=== PATIENT | female | born 1965 | race Caucasian/White ===

== ENCOUNTER → 2023-10-28 16:35 | Outpatient (REF) | payer OTHER, SELFPAY | LOC: RAD 16:35 | PROVIDERS: ATTENDING PHYSICIAN Specialist; FAMILY PHYSICIAN Family Medicine | DX: M17.0 Bilateral primary osteoarthritis of knee (principal) | CPT/HCPCS: 73560; 73565 ==

== ENCOUNTER → 2023-11-27 17:25 | Outpatient (REF) | payer OTHER, SELFPAY | LOC: RCS 17:25 | PROVIDERS: ATTENDING PHYSICIAN Internal Medicine Interventional Cardiology; FAMILY PHYSICIAN Family Medicine | DX: R06.09 Other forms of dyspnea (principal) | CPT/HCPCS: 93306 ==

== ENCOUNTER → 2023-11-28 07:05 | Outpatient (REF) | payer OTHER, SELFPAY | LOC: DHCBC/DCA 07:05 | PROVIDERS: ATTENDING PHYSICIAN Internal Medicine Interventional Cardiology; FAMILY PHYSICIAN Family Medicine | DX: R06.09 Other forms of dyspnea (principal) | CPT/HCPCS: 78452; 93017; A9500 ==

== ENCOUNTER → 2024-04-15 09:59 | Outpatient (REF) | payer OTHER, SELFPAY | LOC: WDC 09:59 | PROVIDERS: ATTENDING PHYSICIAN Advanced Practice Midwife; FAMILY PHYSICIAN Family Medicine | DX: N63.20 Unspecified lump in the left breast, unspecified quadrant (principal); N63.21 Unspecified lump in the left breast, upper outer quadrant | CPT/HCPCS: 76642; 77062; 77066 ==

== ENCOUNTER → 2024-06-09 16:41 | Outpatient (REF) | payer OTHER, SELFPAY | LOC: RAD 16:41 | PROVIDERS: ATTENDING PHYSICIAN Family Medicine | DX: M54.50 Low back pain, unspecified (principal); M51.360 Other intervertebral disc degeneration, lumbar region with discogenic back pain only | CPT/HCPCS: 72110 ==

== ENCOUNTER 2024-08-12 18:55 | Outpatient (RCR) | payer OTHER, SELFPAY | END 2024-08-12 23:59 | disposition home or self-care (01) | LOC: RPT 18:55 | PROVIDERS: ATTENDING PHYSICIAN Physical Medicine & Rehabilitation; FAMILY PHYSICIAN Family Medicine | DX: M47.816 Spondylosis without myelopathy or radiculopathy, lumbar region (principal); M43.16 Spondylolisthesis, lumbar region; Z73.6 Limitation of activities due to disability | CPT/HCPCS: 97110; 97140; 97161 ==

== ENCOUNTER 2024-09-02 17:00 | Outpatient (RCR) | payer OTHER, SELFPAY | END 2024-09-02 23:59 | disposition home or self-care (01) | LOC: RPT 17:00 | PROVIDERS: ATTENDING PHYSICIAN Physical Medicine & Rehabilitation; FAMILY PHYSICIAN Family Medicine | DX: M47.816 Spondylosis without myelopathy or radiculopathy, lumbar region (principal); M43.16 Spondylolisthesis, lumbar region; Z73.6 Limitation of activities due to disability | CPT/HCPCS: 97110; 97140 ==

== ENCOUNTER 2024-09-16 08:26 | Emergency (ER) | payer OTHER, SELFPAY ==
[2024-09-16 08:40] VITALS: BP 114/67
--- NOTE | 2024-09-16 09:39 | ED.GENMED ---
History of Present Illness
General
Chief Complaint: Fall
Source: patient
Time Seen by Provider: 09/16/24 09:30
History of Present Illness
History of Present Illness:
58-year-old female with no reported past medical history presenting to the emergency department for evaluation after sustaining an accidental fall at the [facility] this morning around 7:30 AM injuring her left ankle and striking her
head on the ground/wall. Patient states no loss of consciousness following the fall but does states she felt dazed afterwards and still has a left-sided headache. No reported vomiting, visual changes, focal weakness or numbness or any other
injuries sustained. Patient states the pain on her left ankle is mainly lateral and is worse when inverting or everting her ankle.
Past History
Past History
ED Past Medical History: None
ED Past Surgical History: Cholecystectomy and Other
Social History
Tobacco: Non-smoker
Alcohol: None
Drug: None
Personal:
Living: with family
Employment: Employed
Review of Systems
Review of Systems
All Other Systems: ROS reviewed and negative except as documented in HPI and ROS
Phy Exam
Physical Exam
Physical Exam:
GENERAL: Alert , in no apparent distress
EYE: conjunctiva clear, pupils 4 mm, EOMI
Head: Normocephalic atraumatic, no hematoma, no contusion
NECK: Supple, no midline tenderness
ENT: mmm.
LUNGS: no acute respiratory distress
NEUROLOGICAL: Alert and oriented
SKIN: Warm and dry, skin intact.
MUSCULOSKELETAL: Left lower extremity: Tenderness over the left lateral malleolus. No other deformities/tenderness neurovascularly intact.
PSYCH: Normal and appropriate interaction.
Scores
Heart Failure Risk
Heart Failure Risk Score: Not Applicable
Heart Score for Chest Pain Patients
STEMI patient?: Not applicable
Withdrawal Assessment of Alcohol
Withdrawal Assessment Completed?: Not applicable
Course
Orders/Labs/Results
Orders:
Orders
09/16/24 08:45
Ankle, left 3 view CR [CR Ankle - Left Min 3 Views ] Urgent
Comment:
Reason For Exam: pain, fall
09/16/24 09:39
Ortho Boot Left- Treatment ONCE
Short or tall?: Short
Vital Signs
Initial and Last Documented VS:
Initial Vital Signs
Temp Pulse Resp BP Pulse Ox
97.9 F 78 18 114/67 98
09/16/24 08:40 09/16/24 08:40 09/16/24 08:40 09/16/24 08:40 09/16/24 08:40
Last Documented Vital Signs
Temp Pulse Resp BP Pulse Ox
97.9 F 78 18 114/67 98
09/16/24 08:40 09/16/24 08:40 09/16/24 08:40 09/16/24 08:40 09/16/24 08:40
MDM/Problems Addressed
Differential Diagnosis Includes:
Sprain, contusion, fracture, concussion, I do not have concern for intracranial bleeding or calvarial fracture
MDM/Problems Addressed:
58-year-old female presenting to the ER for evaluation after sustaining an accidental fall injuring her left ankle and left side of her head. I do not have concern for intracranial bleeding given the mechanism, no loss consciousness, no vomiting,
no anticoagulants. Discussed possibilities of concussion. X-ray of the left ankle performed on arrival which does show a nondisplaced lateral malleolus fracture. Patient preferred orthopedic boot over splint which I do think is reasonable given
it is a nonweightbearing bone. Patient does have crutches and I did advise her to use this for increased ability. Patient has orthopedic group to follow-up with. RAQUEL recommendations discussed. Stable for discharge home otherwise
*Radiology
Radiology exam reviewed: preliminary read by ED provider (Nondisplaced lateral malleolus fracture)
*Pulse Oximetry
Patient hypoxic: no
*Critical Care Note
Total Time (30-74mins, 75-104mins- exclusive of procedures): Not Applicable
Data Reviewed
Further Testing Considered But Not Given:
Discussed CT imaging however patient agrees, no indication for this at this time.
ED Attending Note
-
Portions of this chart may have been created with voice recognition software.� Occasional wrong word or��sound alike� substitutions may have occurred due to the inherent limitations of voice recognition software.
Discharge Plan
Departure
Patient Disposition: Home (Routine Discharge)
Date of Disposition: 09/16/24
Time of Disposition: 09:39
Patient with high blood pressure during this ER visit?: No
Discharge Problem:
Accidental fall, Closed fracture of left lateral malleolus
Instructions: Ankle Fracture (DC)
Prescriptions:
No Action
chlorpheniramine maleate 4 MG tablet
4 mg PO DAILY
L norgest/e.estradiol-e.estrad [Seasonique] 1 EACH tablets,dose pack,3 month
1 ea PO DAILY
Fish Oil
Ipratropium [place]
1 spray intranasal DAILY
Iron
Multivitamin
VITAMIN C
VITAMIN D
Vitamin B-100 Balanced
amoxicillin-pot clavulanate 875 MG/125 MG tablet
1 tab PO BID Qty: 20 0RF
methocarbamol [Robaxin] 500 MG tablet
1.5 g PO TID Qty: 27 0RF
Stand Alone Forms: Return to Work
Interventions
Interventions:
*Risk Screen - Suicide Last Done: 09/16/24 08:40
*General Assessment Last Done: 09/16/24 08:40
*Neglect/Abuse Screening Last Done: 09/16/24 08:40
*Nursing Disposition Last Done: 09/16/24 10:11
ED- Neurological Assessment Last Done: 09/16/24 10:10
Discharge Date and Time
Discharge Date/Time: 09/16/24 10:12
Print Language: NEPALI
== END 2024-09-16 10:12 | disposition home or self-care (01) ==
LOC: EMR 08:26
PROVIDERS: EMERGENCY PHYSICIAN Emergency Medicine; FAMILY PHYSICIAN Family Medicine
DX: S82.62XA Displaced fracture of lateral malleolus of left fibula, initial encounter for closed fracture (principal); W19.XXXA Unspecified fall, initial encounter; Z90.49 Acquired absence of other specified parts of digestive tract
CPT/HCPCS: 99283; 73610

== ENCOUNTER → 2024-10-21 07:47 | Outpatient (REF) | payer OTHER, SELFPAY | LOC: RAD 07:47 | PROVIDERS: ATTENDING PHYSICIAN Internal Medicine Endocrinology, Diabetes & Metabolism; FAMILY PHYSICIAN Family Medicine | DX: Z78.0 Asymptomatic menopausal state (principal) | CPT/HCPCS: 77080 ==

== ENCOUNTER 2024-12-16 17:52 | Outpatient (RCR) | payer OTHER, SELFPAY | END 2024-12-16 23:59 | disposition home or self-care (01) | LOC: RPT 17:52 | PROVIDERS: ATTENDING PHYSICIAN Specialist; FAMILY PHYSICIAN Family Medicine | DX: S82.65XD Nondisplaced fracture of lateral malleolus of left fibula, subsequent encounter for closed fracture with routine healing (principal); Z73.6 Limitation of activities due to disability; X58.XXXD Exposure to other specified factors, subsequent encounter | CPT/HCPCS: 97010; 97110; 97140; 97162 ==

== ENCOUNTER 2024-12-28 16:53 | Outpatient (RCR) | payer OTHER, SELFPAY | END 2024-12-28 23:59 | disposition home or self-care (01) | LOC: RPT 16:53 | PROVIDERS: ATTENDING PHYSICIAN Specialist; FAMILY PHYSICIAN Family Medicine | DX: S82.65XD Nondisplaced fracture of lateral malleolus of left fibula, subsequent encounter for closed fracture with routine healing (principal); Z73.6 Limitation of activities due to disability; X58.XXXD Exposure to other specified factors, subsequent encounter | CPT/HCPCS: 97110; 97140 ==

== ENCOUNTER 2025-02-03 18:24 | Emergency (ER) | payer OTHER, SELFPAY ==
[2025-02-03 18:28] VITALS: BP 138/82
[2025-02-03 18:48] LABS: Hematocrit 40.9 % (37.0-47.0); Hemoglobin 13.9 g/dL (12.0-16.0); Mean Corp Hgb Conc. 34.0 g/dL (33.0-37.0); Mean Corpuscular Volume 90.5 fL (81.0-99.0); Nucleated Red Blood Cells % 0 %; Platelet Count 221 10^3/uL (130-400); Red Cell Dist. Width 13.1 % (11.5-14.5)
[2025-02-03 18:59] LABS: ALT (SGPT) 18 U/L (0-35); AST (SGOT) 24 U/L (14-36); Albumin 4.9 g/dl (3.5-5.0); Alkaline Phosphatase 64 U/L (38-126); Blood Urea Nitrogen 17 mg/dl (7-17); Calcium 9.5 mg/dl (8.4-10.2); Carbon Dioxide 24 mmol/L (22-30); Chloride 110 mmol/L (98-107); Glucose 103 mg/dl (70-99); Potassium 4.6 mmol/L (3.5-5.1); Sodium 141 mmol/L (135-145); Total Protein 7.5 g/dl (6.3-8.2); eGFR > 60.00
[2025-02-03 19:00] LABS: Lipase 116 U/L (23-300)
[2025-02-03 21:42] VITALS: BMI 26.0
[2025-02-03 21:52] VITALS: BP 125/76
[2025-02-03 22:00] VITALS: BP 125/77
[2025-02-03 23:03] VITALS: BP 128/73
[2025-02-03] MEDS: ZOFRAN 4 MG IV (23:17)
[2025-02-03] MEDS: TORADOL 30 MG IV (23:17)
[2025-02-03] MEDS: NSS 1000 IV (23:18)
--- NOTE | 2025-02-04 00:15 | ED.GENMED ---
History of Present Illness
General
Chief Complaint: Abdominal Pain
Source: patient
Exam Limitations: none
Time Seen by Provider: 02/03/25 22:43
Nursing documentation reviewed up to this point in time: agreed with
History of Present Illness
History of Present Illness:
Patient to ED with complaint of right sided abd. pain radiating around to flank. Symptoms started 3 days ago but worsened today. Denies fever/chills. +nausea, no vomiting. No prior history of same.
Past History
Past History
ED Past Medical History: None
ED Past Surgical History: Cholecystectomy and Other
Social History
Tobacco: Non-smoker
Alcohol: None
Drug: None
Personal:
Living: with family
Employment: Employed
Review of Systems
Review of Systems
Allergies reviewed?: Yes
All Other Systems: ROS reviewed and negative except as documented in HPI and ROS
Constitutional: Reports no symptoms
EENT: Reports no symptoms
Respiratory: Reports no symptoms
Cardiac: Reports no symptoms
ABD/GI: Reports abdominal pain (right abd pain)
: Reports flank pain
Musculoskeletal: Reports no symptoms
Skin: Reports no symptoms
Neurological: Reports no symptoms
Psychiatric: Reports no symptoms
Phy Exam
General Physical Exam
General Presentation: moderate distress
General age: appears stated age
General Skin: warm and dry
General Habitus: normal
General Mental: alert
Cardiovascular Exam
Cardiovascular Exam: regular rate/rhythm and no edema
Gastrointestinal Exam
Gastrointestinal Exam: normal bowel sounds, soft, no organomegaly, no pulsatile mass and non distended
Palpation: left upper quadrant: No tenderness, left lower quadrant: No tenderness, right upper quadrant: Moderate tenderness and right lower quadrant: Mild tenderness
Musculoskeletal Exam
Musculoskeletal Exam: full ROM and neuro vasc intact
Skin Exam
Skin Exam: normal color, warm/dry and no rash
Psychiatric Exam
Psychiatric Exam: normal mood/affect
Course
Orders/Labs/Results
Orders:
Orders
02/03/25 18:35
Complete Blood Count/With Diff Urgent
Comprehensive Metabolic Panel Urgent
Lipase Urgent
02/03/25 22:52
Ketorolac [Toradol] 30 mg IV NOW STA
Ondansetron Injectable [Zofran] 4 mg IV NOW STA
02/03/25 22:53
CT Abd/pelvis W Iv Cont Urgent
Comment:
Reason For Exam: right sided abd. pain
0.9% Sodium Chloride 1000 ml [Nss] 1,000 ml IV BOLUS
02/04/25 00:27
Hydrocodone 5/APAP 325 [[place] 5/325] 1 tablet PO NOW STA
02/04/25 00:31
Hydrocodone 5/APAP 325 [[place] 5/325] 1 tablet PO NOW STA
Abnormal Lab Results
02/03/25
18:35
Absolute Monos (auto) 0.7 H 10^3/uL
(0.1-0.6)
Neutrophils % 39.9 L %
(42.2-75.2)
Monocytes % 11.6 H %
(1.7-9.3)
Chloride 110 H mmol/L
(98-107)
Glucose 103 H mg/dl
(70-99)
02/03/25 18:35
02/03/25 18:35
Vital Signs
Initial and Last Documented VS:
Initial Vital Signs
Temp Pulse Resp BP Pulse Ox
98.5 F 71 18 138/82 98
02/03/25 18:28 02/03/25 18:28 02/03/25 18:28 02/03/25 18:28 02/03/25 18:28
Last Documented Vital Signs
Temp Pulse Resp BP Pulse Ox
97.8 F 59 19 128/73 96
02/03/25 21:54 02/03/25 23:15 02/03/25 23:15 02/03/25 23:03 02/04/25 00:18
*Radiology
Radiology exam reviewed: radiology read reviewed
*Pulse Oximetry
SaO2: 96
Oxygen Mode of Delivery: Room air
Patient hypoxic: no
*Critical Care Note
Total Time (30-74mins, 75-104mins- exclusive of procedures): Not Applicable
Update Note
Update Note:
Patient to ED with complaint of right sided abd pain radiating to right flank x 3 days. Worse today. Labs reviewed. WBC normal. VSS, she remains afebrile. CT report of possible enteritis vs mild ileus, no other concening findings. Discussed
findings with her. She will be discharged home tonight, clear liquids to advance as tolerated, and clse follow up with PCP. SHe states she was seen by PCP prior to coming here, had urinalysis in office and results were neg for UTI. SHe declined
repeat urine here. Given instructions on s/s to return to ED and she is agreeable to plan.
ED Attending Note
-
Portions of this chart may have been created with voice recognition software.� Occasional wrong word or��sound alike� substitutions may have occurred due to the inherent limitations of voice recognition software.
Discharge Plan
Departure
Patient Disposition: Home (Routine Discharge)
Date of Disposition: 02/04/25
Time of Disposition: 00:25
Patient with high blood pressure during this ER visit?: No
Condition: Good
Covid-19: Not Applicable
Discharge Problem:
Abdominal pain, Enteritis
Instructions: Abdominal Pain
Prescriptions:
New
hydrocodone-acetaminophen 5-325 mg tablet
1 tab PO Q4H PRN (Reason: Pain) Qty: 10 0RF
No Action
chlorpheniramine maleate 4 MG tablet
4 mg PO DAILY
L norgest/e.estradiol-e.estrad [Seasonique] 1 EACH tablets,dose pack,3 month
1 ea PO DAILY
Fish Oil
Ipratropium [place]
1 spray intranasal DAILY
Iron
Multivitamin
VITAMIN C
VITAMIN D
Vitamin B-100 Balanced
amoxicillin-pot clavulanate 875 MG/125 MG tablet
1 tab PO BID Qty: 20 0RF
methocarbamol [Robaxin] 500 MG tablet
1.5 g PO TID Qty: 27 0RF
Referrals:
Escobar Burleson, DO [Family Provider, Family Practice] - Tomorrow
Activity Restrictions/Additional Instructions:
Return to the emergency department immediately for any changes in/worsening of your symptoms.
Interventions
Interventions:
*Risk Screen - Suicide Last Done: 02/03/25 18:28
*General Assessment Last Done: 02/03/25 18:28
*Neglect/Abuse Screening Last Done: 02/03/25 18:28
*ED- Fall Risk Assessment Last Done: 02/03/25 18:28
*ED COVID-19 Vaccine History Last Done: 02/03/25 18:28
*Nursing Disposition Last Done: 02/04/25 01:22
MC-[id number] Assessment Last Done: 02/03/25 21:43
Discharge Date and Time
Discharge Date/Time: 02/04/25 01:22
Print Language: NIUEAN
[2025-02-04] MEDS: NORCO 5/325 1 TABLET PO (00:53)
== END 2025-02-04 01:22 | disposition home or self-care (01) ==
LOC: EMR 18:24
PROVIDERS: Emergency Medicine; EMERGENCY PHYSICIAN Emergency Medicine; FAMILY PHYSICIAN Family Medicine
DX: K52.9 Noninfective gastroenteritis and colitis, unspecified (principal); Z90.49 Acquired absence of other specified parts of digestive tract
CPT/HCPCS: 99284; 96374; 96375; 96361; 74177; 80053; 83690; 85025; Q9967

== ENCOUNTER → 2025-03-21 09:21 | Outpatient (REF) | payer OTHER, SELFPAY | LOC: PAVMRI 09:21 | PROVIDERS: ATTENDING PHYSICIAN Physical Medicine & Rehabilitation; FAMILY PHYSICIAN Family Medicine | DX: M54.50 Low back pain, unspecified (principal) | CPT/HCPCS: 72148 ==

== ENCOUNTER → 2025-05-25 07:52 | Outpatient (REF) | payer OTHER, SELFPAY | LOC: RAD 07:52 | PROVIDERS: ATTENDING PHYSICIAN Physical Medicine & Rehabilitation; FAMILY PHYSICIAN Family Medicine | DX: M43.16 Spondylolisthesis, lumbar region (principal); M51.369 Other intervertebral disc degeneration, lumbar region without mention of lumbar back pain or lower extremity pain; M47.816 Spondylosis without myelopathy or radiculopathy, lumbar region; S82.832A Other fracture of upper and lower end of left fibula, initial encounter for closed fracture | CPT/HCPCS: 72110 ==

== ENCOUNTER → 2025-07-01 08:12 | Outpatient (REF) | payer OTHER, SELFPAY | LOC: HWWDC 08:12 | PROVIDERS: ATTENDING PHYSICIAN Advanced Practice Midwife; FAMILY PHYSICIAN Family Medicine | DX: Z12.31 Encounter for screening mammogram for malignant neoplasm of breast (principal) | CPT/HCPCS: 77063; 77067 ==